=== PATIENT | female | born 1985 | race Caucasian/White ===

== ENCOUNTER → 2016-06-03 | Outpatient (CLI) | payer OTHER ==
[2016-06-03 09:57] LABS: CHCM 34.2; HCT 39.6 % (34.0-46.0); HDW 2.31; HGB 13.2 gm/dL (11.4-16.0); MCH 30.3 pg (25.0-35.0); MCHC 33.3 g/dL (31.0-37.0); Mean Platelet Volume 6.4; RBC 4.36 m/uL (3.80-5.40); RDW 12.9 % (11.5-15.5); WBC 8.3 k/uL (3.8-10.6)
[2016-06-03 11:09] LABS: Glucose 81 mg/dL (74-99); Non-African American GFR(MDRD) >60 (>60 ml/min/1.73 sqM)
== END | disposition home or self-care (01) ==
LOC: LABWHC1 09:04
PROVIDERS: ATTEND Obstetrics & Gynecology
DX: Z34.81 Encounter for supervision of other normal pregnancy, first trimester (principal); Z3A.00 Weeks of gestation of pregnancy not specified
CPT/HCPCS: 36415; 82565; 82947; 85027; 86762; 86780; 86850; 86900; 86901; 87340

== ENCOUNTER → 2016-09-27 | Outpatient (CLI) | payer OTHER ==
[2016-09-27 08:34] LABS: HCT 33.6 % (34.0-46.0); HDW 2.68; HGB 11.6 gm/dL (11.4-16.0); MCH 32.6 pg (25.0-35.0); MCHC 34.5 g/dL (31.0-37.0); MCV 94.6 fL (80.0-100.0); Mean Platelet Volume 7.4; RBC 3.55 m/uL (3.80-5.40); WBC 8.4 k/uL (3.8-10.6)
== END ==
LOC: LABWHC1 07:15
PROVIDERS: ATTEND Obstetrics & Gynecology
DX: Z34.92 Encounter for supervision of normal pregnancy, unspecified, second trimester (principal); Z3A.00 Weeks of gestation of pregnancy not specified
CPT/HCPCS: 36415; 82950; 85027

== ENCOUNTER → 2016-10-06 | Outpatient (CLI) | payer OTHER ==
[2016-10-06 11:38] LABS: Glucose 3 Hour, Gest 96 mg/dL
== END | disposition home or self-care (01) ==
LOC: LABWHC1 07:31
PROVIDERS: ATTEND Obstetrics & Gynecology
DX: O99.810 Abnormal glucose complicating pregnancy (principal); Z3A.00 Weeks of gestation of pregnancy not specified
CPT/HCPCS: 36415; 82951; 82952

== ENCOUNTER 2017-01-02 05:55 | Inpatient (IN) | payer OTHER ==
--- NOTE | 2017-01-02 06:04 | P.HPOB ---
History of Present Illness H&P Date: 01/02/17 Chief Complaint: patient is requesting induction of labor. This patient is a fuentes 31-year-old 2 para 1 female estimated date of confinement 01/05/2017 estimated gestational age 39-4/7 weeks who presents to labor and delivery for requested induction of labor. Patient's care has been uncomplicated. Review of Systems Constitutional: Denies chills, Denies fever Cardiovascular: Denies chest pain, Denies shortness of breath Respiratory: Denies cough Gastrointestinal: Reports heartburn Genitourinary: Reports Menstruation: Reports amenorrhea Past Medical History Past Medical History: No Reported History History of Any Multi-Drug Resistant Organisms: None Reported Past Surgical History: No Surgical Hx Reported Past Anesthesia/Blood Transfusion Reactions: No Reported Reaction Past Psychological History: No Psychological Hx Reported Smoking Status: Never smoker Past Alcohol Use History: None Reported Past Drug Use History: None Reported - Past Family History Father Family Medical History: Hypertension Medications and Allergies Home Medications Medication Instructions Recorded Confirmed Type Acetaminophen-Codeine 300-30mg 1 - 2 each PO Q4HR PRN #30 tab 11/18/14 Rx [Tylenol w/codeine #3] Ibuprofen [Motrin] 600 mg PO Q6HR PRN #40 tab 11/18/14 Rx Allergies Allergy/AdvReac Type Severity Reaction Status Date / Time No Known Allergies Allergy Verified 11/16/14 18:03 Exam - OBG Physical Exam Abdomen: bowel sounds normal, no diffuse tenderness, no bruit present, no guarding noted, no hepatomegaly, no splenomegaly, no mass Vulva: both: normal Cervix: no lesion (cervix in the office was 2 cm dilated -2 station vertex.), no discharge Uterus: enlarged (fundal height was 38 cm.) Results blood work shows she is O positive, rubella immune, RPR nonreactive, hepatitis B negative, Glucola was abnormal with a normal three-hour gtt. B strep was negative, ultrasounds have been normal. Assessment and Plan (1) Third trimester Narrative/Plan: This patient is a fuentes 31-year-old 2 para 1 female 39-4/7 weeks gestation who presents to labor and delivery for requested induction of labor. Plan is induction of labor and anticipate vaginal delivery. Current Visit: No Status: Acute Code(s): Z33.1 - STATE, INCIDENTAL SNOMED Code(s): 82313840 (2) Elective induction of labor planned Current Visit: Yes Status: Acute Code(s): TSY2596 - SNOMED Code(s): 842804080
[2017-01-02] MEDS ORDERED: CARBOPROST TROMETHAMINE 250 MCG/ML 1 ML AMP IM PRN (06:12)
[2017-01-02] MEDS ORDERED: OXYTOCIN 10 UNIT/ML 1 ML VIAL IM PRN (06:12)
[2017-01-02] MEDS ORDERED: OXYTOCIN 20 UNITS/1000 ML NS 1,000 ML IV SCH ×2 (06:12→16:07)
[2017-01-02] MEDS ORDERED: LIDOCAINE 1% (PF) 10 MG/ML (30 ML SDV) SQ PRN (06:12)
[2017-01-02] MEDS ORDERED: TERBUTALINE 1 MG/ML VIAL SQ PRN (06:12)
[2017-01-02] MEDS ORDERED: METHYLERGONOVINE 0.2 MG/ML 1 ML AMP IM PRN (06:12)
[2017-01-02] MEDS: LACTATED RINGERS 1,000 ML IV SCH ×2 (06:25→11:58)
[2017-01-02 06:32] LABS: Basophils % (A) 0 %; CH 31.3; CHCM 33.8; Eosinophils # (A) 0.1 k/uL (0-0.7); Eosinophils % (A) 1 %; HCT 38.6 % (34.0-46.0); HDW 2.48; HGB 12.8 gm/dL (11.4-16.0); Luc # (Auto) 0.16; Luc % (Auto) 2; Lymphocytes % (A) 25 %; MCHC 33.3 g/dL (31.0-37.0); Monocytes # (A) 0.4 k/uL (0-1.0); Monocytes % (A) 5 %; Neutrophils # (A) 5.3 k/uL (1.3-7.7); Neutrophils % (A) 66 %; RBC 4.14 m/uL (3.80-5.40); RDW 15.5 % (11.5-15.5); WBC (Perox) 8.31
[2017-01-02] MEDS ORDERED: SODIUM CHLORIDE 0.9% 100 ML BAG ONE (12:10)
[2017-01-02] MEDS ORDERED: fentaNYL (PF) 50 MCG/ML 5 ML AMP ONE (12:10)
[2017-01-02] MEDS ORDERED: BUPIVACAINE (PF) 0.25% 30 ML VIAL ONE (12:10)
[2017-01-02] MEDS ORDERED: BUPIVACAINE (PF) 0.25% 25 ML, fentaNYL (PF) 200 MCG in SODIUM CHLORIDE 0.9% 71 ML EPIDURAL ONE (13:03)
[2017-01-02] MEDS ORDERED: WITCH HAZEL 1 EACH MED..PAD TOPICAL PRN (16:07)
[2017-01-02] MEDS ORDERED: SIMETHICONE 80 MG CHEWABLE PO PRN (16:07)
[2017-01-02] MEDS ORDERED: BENZOCAINE/MENTHOL SPRAY 1 GM/SPRAY AEROSOL TOPICAL PRN (16:07)
[2017-01-02] MEDS ORDERED: BISACODYL 10 MG SUPP RECTAL PRN (16:07)
[2017-01-02] MEDS ORDERED: diphenhydrAMINE 25 MG CAP PO PRN (16:07)
[2017-01-02] MEDS ORDERED: HYDROCORTISONE 2.5% RECTAL CREAM 30 GM TUBE RECTAL PRN (16:07)
[2017-01-02] MEDS ORDERED: Acetaminophen-Codeine 300-30mg TAB PO PRN ×2 (16:07)
[2017-01-02] MEDS ORDERED: ZOLPIDEM 5 MG TAB PO PRN (16:07)
[2017-01-02] MEDS ORDERED: diphenhydrAMINE 50 MG/ML 1 ML VIAL IVP PRN (16:07)
[2017-01-02] MEDS ORDERED: ACETAMINOPHEN TAB 325 MG TAB PO PRN (16:07)
[2017-01-02] MEDS ORDERED: LANOLIN CREAM 5 GM TUBE TOPICAL PRN (16:07)
--- NOTE | 2017-01-02 17:53 | P.PROBDLV ---
Vaginal Delivery Note - . Vaginal Delivery Note: normal vaginal delivery viable male infant Apgars are 8 and 8 delivery time is 1556 hrs. Please see dictated H&P for intimate details of this patient's admission. In brief summary this is a pleasant 31-year-old 2 para 1 female 39-4/7 weeks gestation who is admitted to labor and delivery for elective induction of labor. Patient is admitted and is 2 cm dilated. She has artificial rupture membranes for clear fluid. Labor was induced with Pitocin per protocol. She does receive an epidural for pain control. Patient's labor progresses and she gets to complete. Patient pushes for approximately 45 minutes brings the head to the perineum. Posterior perineum was infiltrated with 1% lidocaine and a midline episiotomy is made. We then have controlled delivery of the infant's head over the perineum. Mouth and nares are bulb suctioned. There is a very tight nuchal cord which is doubly clamped cut and then reduced. We then have delivery of the anterior posterior shoulder and rest this 's body. This is a vigorous viable male Apgars are 8 and 8 delivery time is 1556 hrs. After delivery of the the placenta is spontaneously delivered intact with a three-vessel cord. Inspection of the perineum shows a second-degree midline laceration that is repaired with 3-0 Vicryl in the usual fashion. Excellent reapproximation is noted. All counts are correct 3. Estimated blood loss is 100 mL. There are no complications. and mother are stable in delivery room.
[2017-01-02] MEDS: IBUPROFEN 600 MG TAB PO PRN (22:13)
[2017-01-03] MEDS: SENNOSIDES-DOCUSATE SODIUM 1 EACH TAB PO SCH ×2 (01:54→08:06)
[2017-01-03] MEDS: IBUPROFEN 600 MG TAB PO PRN ×2 (04:36→11:18)
--- NOTE | 2017-01-03 07:35 | P.PNOBGVD ---
Subjective - Subjective Patient reports: Reports appetite normal, Reports voiding normally, Reports pain well controlled, Reports ambulating normally : doing well Objective - Latest Vital Signs Latest vital signs: Vital Signs Temp Pulse Resp BP 01/03/17 00:00 98.1 F 80 15 117/71 01/02/17 20:00 98 F 99 15 115/67 01/02/17 18:08 99.9 F H 104 H 14 125/68 01/02/17 17:38 97 16 138/63 01/02/17 17:08 97 16 133/72 01/02/17 16:53 97 16 129/62 01/02/17 16:38 110 H 16 144/72 01/02/17 16:23 113 H 16 143/77 01/02/17 16:08 100 16 137/69 Intake and Output 01/02/17 01/03/17 01/03/17 22:59 06:59 14:59 Output Total 200 Balance -200 Output: Estimated Blood Loss 200 Other: # Voids 1 1 - Exam Lungs: bilateral: normal Chest: Normal S1, Normal S2 Extremities: Present: normal Abdomen: Present: normal appearance, soft Uterus: Present: normal, firm Assessment and Plan Assessment: Post day #1. Patient is resting without complaints wishes to go home. Vital signs are stable and she is afebrile. Uterus is firm nontender she's having normal lochia. My impression this is a normal course. Plan is to continue routine care discharge home later today. (1) Third trimester Current Visit: No Status: Acute Code(s): Z33.1 - STATE, INCIDENTAL SNOMED Code(s): 09674770 (2) Elective induction of labor planned Current Visit: Yes Status: Acute Code(s): OXD1179 - SNOMED Code(s): 169578790
--- NOTE | 2017-01-03 07:41 | P.DS ---
Providers Date of admission: 01/02/17 05:55 Expected date of discharge: 01/03/17 Attending physician: Satinder Sam Primary care physician: Bakari Holman - Discharge Diagnosis(es) (1) Third trimester Current Visit: No Status: Acute (2) Elective induction of labor planned Current Visit: Yes Status: Acute Hospital Course: Please see dictated H&P for intimate details of this patient's admission. Brief summary this is a pleasant 31-year-old 2 para 1 female 39-1/2 weeks gestation admitted to labor and delivery for elective induction of labor. Patient is admitted has uncomplicated induction of labor goes on to have a vaginal delivery viable male . Please see dictated delivery note. day #1 patient is without complaints and wishes to go home. Patient' s felt be stable for discharge home follow up with me in 6 weeks. Procedures: Induction of labor and normal vaginal delivery. Patient Condition at Discharge: Good Plan - Discharge Summary New Discharge Prescriptions: New Acetaminophen-Codeine 300-30mg [Tylenol w/codeine #3] 1 - 2 each PO Q4HR PRN #30 tab PRN Reason: Mild Pain exceeding Tylenol Ibuprofen [Motrin] 600 mg PO Q6HR PRN #40 tab PRN Reason: Mild Pain Or Fever >= 100.5 No Action Pnv,Calcium 72/Iron/Folic Acid [ Plus Tablet] 1 tab PO DAILY Discharge Medication List Pnv,Calcium 72/Iron/Folic Acid [ Plus Tablet] 1 tab PO DAILY 01/02/17 [ History] Acetaminophen-Codeine 300-30mg [Tylenol w/codeine #3] 1 - 2 each PO Q4HR PRN # 30 tab 01/03/17 [Rx] Ibuprofen [Motrin] 600 mg PO Q6HR PRN #40 tab 01/03/17 [Rx] Follow up Appointment(s)/Referral(s): Satinder Sam MD [STAFF PHYSICIAN] - 02/24/17 9:15 am Patient Instructions/Handouts: Vaginal Delivery (DC) Activity/Diet/Wound Care/Special Instructions: No intercourse or anything per vagina for 6 weeks. Please call if any fever, chills, excessive vaginal bleeding, and/or abdominal pain. Discharge Disposition: HOME SELF-CARE
[2017-01-03 17:12] VITALS: BP 118/72; PULSE 78; RESP 18; TEMP 98.5
== END 2017-01-03 17:00 | disposition home or self-care (01) | DRG 775 ==
LOC: 4FBP 05:55
PROVIDERS: ADMIT Obstetrics & Gynecology; ATTEND Obstetrics & Gynecology
PROC: 3E033VJ Introduction of Other Hormone into Peripheral Vein, Percutaneous Approach (ICD-10-PCS; principal; 2017-01-02)
PROC: 00HU33Z Insertion of Infusion Device into Spinal Canal, Percutaneous Approach (ICD-10-PCS; principal; 2017-01-02)
PROC: 10907ZC Drainage of Amniotic Fluid, Therapeutic from Products of Conception, Via Natural or Artificial Opening (ICD-10-PCS; principal; 2017-01-02)
PROC: 10E0XZZ Delivery of Products of Conception, External Approach (ICD-10-PCS; principal; 2017-01-02)
PROC: 0W8NXZZ Division of Female Perineum, External Approach (ICD-10-PCS; principal; 2017-01-02)
PROC: 3E0R3BZ Introduction of Anesthetic Agent into Spinal Canal, Percutaneous Approach (ICD-10-PCS; principal; 2017-01-02)
PROC: 0KQM0ZZ Repair Perineum Muscle, Open Approach (ICD-10-PCS; principal; 2017-01-02)
DX: O69.1XX0 Labor and delivery complicated by cord around neck, with compression, not applicable or unspecified (principal); O70.1 Second degree perineal laceration during delivery; Z37.0 Single live birth; Z3A.39 39 weeks gestation of pregnancy
CPT/HCPCS: 85025; 88307

== ENCOUNTER 2021-01-10 03:15 | Inpatient (IN) | payer BC ==
[2021-01-10] MEDS ORDERED: OXYTOCIN 10 UNIT/ML 1 ML VIAL IM PRN (04:20)
[2021-01-10] MEDS ORDERED: METHYLERGONOVINE 0.2 MG/ML 1 ML AMP IM PRN (04:20)
[2021-01-10] MEDS ORDERED: TERBUTALINE 1 MG/ML VIAL SQ PRN (04:20)
[2021-01-10] MEDS ORDERED: LIDOCAINE 0.5% (PF) 5 MG/ML (50 ML SDV) SQ PRN (04:20)
[2021-01-10] MEDS ORDERED: CARBOPROST TROMETHAMINE 250 MCG/ML 1 ML AMP IM PRN (04:20)
[2021-01-10] MEDS: LACTATED RINGERS 1,000 ML IV SCH ×2 (04:30→06:23)
[2021-01-10] MEDS ORDERED: OXYTOCIN 30 UNITS/500 ML NS 30 UNIT in SALINE 1 500ML.BAG IV SCH ×2 (04:30→07:30)
--- NOTE | 2021-01-10 05:03 | P.HPOB ---
History of Present Illness H&P Date: 01/10/21 Chief Complaint: Leaking fluid This patient is a pleasant 35-year-old 3 para 2 female estimated date of confinement 01/14/2021 estimated gestational age 39-3/7 weeks who presents to labor and delivery with a gush of fluid at approximately 2:30 this morning. Patient's care has been complicated by advanced maternal age. Patient did decline any genetic testing but has been followed with growth ultrasounds and nonstress test. She was found to be marshall breech 35 weeks over this did convert spontaneously to vertex a few weeks ago. care is otherwise uncomplicated. Review of Systems Genitourinary: Reports Menstruation: Reports amenorrhea Past Medical History Past Medical History: No Reported History Additional Past Medical History / Comment(s): Patient's had 2 previous term vaginal deliveries History of Any Multi-Drug Resistant Organisms: None Reported Past Surgical History: No Surgical Hx Reported Additional Past Surgical History / Comment(s): Eye surgery Past Anesthesia/Blood Transfusion Reactions: No Reported Reaction Past Psychological History: No Psychological Hx Reported Smoking Status: Never smoker Past Alcohol Use History: None Reported Past Drug Use History: None Reported - Past Family History Mother Family Medical History: Cancer Additional Family Medical History / Comment(s): Mom from leukemia Father Family Medical History: Hypertension Medications and Allergies Home Medications Medication Instructions Recorded Confirmed Type Pnv,Calcium 72/Iron/Folic Acid 1 tab PO DAILY 01/02/17 01/10/21 History [ Plus Tablet] Allergies Allergy/AdvReac Type Severity Reaction Status Date / Time No Known Allergies Allergy Verified 01/10/21 03:38 Exam Vital Signs Temp Pulse Resp BP Pulse Ox 01/10/21 04:20 99.2 F 117 H 16 116/71 97 Intake and Output 01/09/21 01/09/21 01/10/21 14:59 22:59 06:59 Other: Weight 72.575 kg - OBG Physical Exam Abdomen: bowel sounds normal, no diffuse tenderness, no bruit present, no guarding noted, no hepatomegaly, no splenomegaly, no mass Vulva: both: normal Vagina: Gross rupture membranes with thin meconium-stained fluid Vagina: no discharge Cervix: Cervix is 4 cm dilated and thick -2 station Uterus: enlarged Results labs show she is O positive, rubella immune, RPR nonreactive, hepatitis B is negative, HIV is negative, group B strep was negative, Glucola was 86, ultrasounds show normal growth. Assessment and Plan Assessment: This is a pleasant 35-year-old 3 para 2 female 39-3/7 weeks gestation with spontaneous rupture membranes, thin meconium-stained fluid, and early labor. Plan is augmentation of labor and anticipate vaginal delivery. (1) 39 weeks gestation of Current Visit: Yes Status: Acute Code(s): Z3A.39 - 39 WEEKS GESTATION OF SNOMED Code(s): 25662756 (2) Spontaneous rupture of amniotic membranes Current Visit: Yes Status: Acute Code(s): LIZ8834 - SNOMED Code(s): 644106535 (3) Meconium in amniotic fluid Current Visit: Yes Status: Acute Code(s): P96.83 - MECONIUM STAINING SNOM ED Code(s): 884609254
[2021-01-10 05:34] LABS: Basophils % (A) 0 %; Eosinophils % (A) 0 %; HCT 34.3 % (34.0-46.0); HGB 12.2 gm/dL (11.4-16.0); Lymphocytes # (A) 0.5 k/uL (1.0-4.8); Lymphocytes % (A) 9 %; MCHC 35.6 g/dL (31.0-37.0); MCV 90.1 fL (80.0-100.0); Mean Platelet Volume 7.4; Monocytes # (A) 0.1 k/uL (0-1.0); Monocytes % (A) 3 %; Neutrophils # (A) 4.2 k/uL (1.3-7.7); Neutrophils % (A) 86 %; Platelet Count 157 k/uL (150-450); RDW 13.7 % (11.5-15.5); WBC 4.9 k/uL (3.8-10.6)
[2021-01-10] MEDS ORDERED: SODIUM CHLORIDE 0.9% 100 ML BAG ONE (05:58)
[2021-01-10] MEDS ORDERED: fentaNYL (PF) 50 MCG/ML 5 ML AMP ONE (05:58)
[2021-01-10] MEDS ORDERED: ROPIVACAINE 5MG/ML 20ML VIAL ONE (05:58)
[2021-01-10] MEDS ORDERED: diphenhydrAMINE 50 MG/ML 1 ML VIAL IVP PRN (07:27)
[2021-01-10] MEDS ORDERED: diphenhydrAMINE 25 MG CAP PO PRN (07:27)
[2021-01-10] MEDS ORDERED: BENZOCAINE/MENTHOL SPRAY 1 GM/SPRAY AEROSOL TOPICAL PRN (07:27)
[2021-01-10] MEDS ORDERED: ZOLPIDEM 5 MG TAB PO PRN (07:27)
[2021-01-10] MEDS ORDERED: SIMETHICONE 80 MG CHEWABLE PO PRN (07:27)
[2021-01-10] MEDS ORDERED: HYDROCORTISONE 2.5% RECTAL CREAM 30 GM TUBE RECTAL PRN (07:27)
[2021-01-10] MEDS ORDERED: LANOLIN CREAM 5 GM TUBE TOPICAL PRN (07:27)
[2021-01-10] MEDS ORDERED: ACETAMINOPHEN TAB 325 MG TAB PO PRN (07:27)
[2021-01-10] MEDS ORDERED: bisacodyL 10 MG SUPP RECTAL PRN (07:27)
--- NOTE | 2021-01-10 07:33 | P.PROBDLV ---
Vaginal Delivery Note - . Vaginal Delivery Note: Normal vaginal delivery viable male infant Apgars 9 and 9 delivery time was 0709 hrs. Please see dictated H&P for intimate details of this patient's admission. Brief summary is a pleasant 35-year-old 3 para 2 female 39-4/7 weeks gestation admitted in spontaneous rupture membranes for light meconium-stained fluid. Patient's 4 cm dilated and irregular contractions therefore does have Pitocin augmentation of labor. Patient gets an epidural for pain control and then quickly gets to complete. Patient pushes approximately 2 times pushes the head to the perineum. Perineum is supported we have controlled delivery of 's head over the intact perineum. head is straight occiput anterior presentation. Mouth and nares are bulb suctioned. Nuchal cord is removed loose and reduced. With gentle downward traction we then have deliver the anterior and posterior shoulder and rest this infant's body. This is a vigorous viable male infant Apgars are 9 and 9 delivery time was 0709 hrs. has spontaneous respirations and cry and grossly appears normal. Infant is meconium-stained. After delivery of the the infant is late on the mother's abdomen and after the cord is then pulsating is doubly clamped and cut. It appears to be trivascular. The placenta is then spontaneously delivered intact. It does appear meconium-stained as well. Inspection of perineum shows a first-degree laceration over in the right posterior vagina and this is reapproximated with a 3-0 Vicryl. She also a right periurethral which is superficial does not require stitches. Estimated blood loss 1 50 mL. All counts correct 3. No complications.
--- NOTE | 2021-01-10 11:27 | P.MSEPDOC ---
Presenting Problems - Arrival Data Date of Arrival on Unit: 01/10/21 Time of Arrival on Unit: 03:15 Mode of Transport: Ambulatory - Complaint OB-Reason for Admission/Chief Complaint: Rule Out SROM Comment: Patient believes her water broke at 01:30. She describes the color as yellow/green. Medical History - Information : 3 Para: 2 Term: 2 : 0 Abortions: Spontaneous or Elective: 0 Number of Living Children: 2 - Gestational Age Gestational Age by DARBY (wks/days): 39 Weeks and 3 Days Review of Systems - Review of Systems Constitutional: No problems Breast: No problems ENT: No problems Cardiovascular: No problems Respiratory: No problems Gastrointestinal: No problems Genitourinary: No problems Musculoskeletal: No problems Neurological: No problems Skin: No problems Vital Signs - Temperature Temperature: 97 F Temperature Source: Temporal Artery Scan - Pulse Pulse Oximetery Pulse Rate: 68 Pulse Assessment Method: Automatic Cuff - Respirations Respiratory Rate: 16 Oxygen Delivery Method: Room Air - Blood Pressure Right Arm Blood Pressure: 102/70 Blood Pressure Mean: 80 Blood Pressure Source: Automatic Cuff Medical Screen Scoring - Cervical Exam Dilation (cm): 4 Effacement (%): 50 Station: -2 Membranes: Ruptured - Uterine Contractions Intensity: Mild Resting: Soft to palpation - Assessment - Baby A Baseline FHR: 140 Heart Rate - NICHD Category: Category I (Normal) NST: Reactive Maternal Triage Index - Non-Urgent/Priority 4 Non-Urgent Priority 4: Yes Criteria Met for Priority 4: Early labor signs, SROM Disposition - Disposition OB Disposition: Admit, LDRP Suite I agree with the RN Medical Screening Exam: Yes Case reviewed; plan agreed upon as documented in EMR&OBIX.: Yes Diagnosis: ENCOUNTER FOR FULL-TERM UNCOMPLICATED DELIVERY
[2021-01-10] MEDS: IBUPROFEN 600 MG TAB PO PRN (19:27)
[2021-01-10] MEDS: SENNOSIDES-DOCUSATE SODIUM 1 EACH TAB PO PRN (19:27)
[2021-01-11] MEDS: IBUPROFEN 600 MG TAB PO PRN ×3 (02:57→19:53)
--- NOTE | 2021-01-11 05:47 | P.PNOBGVD ---
Subjective - Subjective Patient reports: Reports appetite normal, Reports voiding normally, Reports pain well controlled, Reports ambulating normally : doing well Objective - Latest Vital Signs Latest vital signs: Vital Signs Temp Pulse Resp BP Pulse Ox 01/10/21 22:18 97.6 F 76 18 99/67 97 01/10/21 16:00 97.9 F 81 16 101/68 01/10/21 12:00 97.6 F 78 14 106/70 95 01/10/21 11:27 97 F L 68 16 102/70 01/10/21 09:25 97 F L 68 16 102/70 01/10/21 08:55 76 16 98/69 01/10/21 08:25 75 16 99/66 01/10/21 08:10 79 16 98/70 01/10/21 07:55 73 16 100/69 01/10/21 07:40 74 16 104/68 01/10/21 07:25 82 16 110/63 Intake and Output 01/10/21 01/10/21 01/11/21 14:59 22:59 06:59 Other: # Voids 2 2 - Exam Lungs: bilateral: normal Chest: Normal S1, Normal S2 Extremities: Present: normal Abdomen: Present: normal appearance, soft Uterus: Present: normal, firm Assessment and Plan Assessment: day #1. Patient is resting without complaints wishes to go home. Vital signs are stable and she is afebrile. Uterus is firm nontender and she is having normal lochia. My impression this is a normal course. Plan is to continue routine care and discharge home later today is lysed her baby is able to be discharged. (1) 39 weeks gestation of Current Visit: Yes Status: Acute Code(s): Z3A.39 - 39 WEEKS GESTATION OF SNOMED Code(s): 69564410 (2) Spontaneous rupture of amniotic membranes Current Visit: Yes Status: Acute Code(s): FDZ1417 - SNOMED Code(s): 818489530 (3) Meconium in amniotic fluid Current Visit: Yes Status: Acute Code(s): P96.83 - MECONIUM STAINING SNOMED Code(s): 852132991
--- NOTE | 2021-01-11 05:50 | P.DS ---
Providers Date of admission: 01/10/21 03:57 Expected date of discharge: 01/11/21 Attending physician: Satinder Sam Primary care physician: Stated None - Discharge Diagnosis(es) (1) 39 weeks gestation of Current Visit: Yes Status: Acute (2) Spontaneous rupture of amniotic membranes Current Visit: Yes Status: Acute (3) Meconium in amniotic fluid Current Visit: Yes Status: Acute Hospital Course: Please see dictated H&P for intimate details of this patient's admission. In brief summary this is a pleasant 35-year-old 3 para 2 female 39-4/7 weeks gestation admitted to labor and delivery in active labor. Patient quickly goes on to have a vaginal delivery viable male . Please see dictated delivery note. day 1 patient without complaints she did wish to go home. Patient's felt be stable for discharge home follow up with me in 6 weeks. Procedures: Normal vaginal delivery Patient Condition at Discharge: Good Plan - Discharge Summary New Discharge Prescriptions: New Ibuprofen [Motrin] 600 mg PO Q6HR PRN #30 tab PRN Reason: Pain No Action Pnv,Calcium 72/Iron/Folic Acid [ Plus Tablet] 1 tab PO DAILY Discharge Medication List Pnv,Calcium 72/Iron/Folic Acid [ Plus Tablet] 1 tab PO DAILY 01/02/17 [History] Ibuprofen [Motrin] 600 mg PO Q6HR PRN #30 tab 01/11/21 [Rx] Follow up Appointment(s)/Referral(s): Satinder Sam MD [STAFF PHYSICIAN] - 02/26/21 10:15 am Patient Instructions/Handouts: Vaginal Delivery (DC) Activity/Diet/Wound Care/Special Instructions: No intercourse or anything per vagina for 6 weeks. Please call if any fever, chills, excessive vaginal bleeding, and/or abdominal pain. Discharge Disposition: HOME SELF-CARE
[2021-01-11 08:41] VITALS: RESP 16
[2021-01-11] MEDS: SENNOSIDES-DOCUSATE SODIUM 1 EACH TAB PO PRN ×2 (09:03→19:54)
[2021-01-11 20:14] VITALS: TEMP 98.4
[2021-01-12 04:20] VITALS: BP 97/68; PULSE 65
[2021-01-12] MEDS: SENNOSIDES-DOCUSATE SODIUM 1 EACH TAB PO PRN (09:24)
== END 2021-01-12 10:05 | disposition home or self-care (01) | DRG 807 ==
LOC: FBPOP 03:15 → 4FBP 03:57
PROVIDERS: ADMIT Obstetrics & Gynecology; ATTEND Obstetrics & Gynecology
PROC: 0HQ9XZZ Repair Perineum Skin, External Approach (ICD-10-PCS; principal; 2021-01-10)
PROC: 10E0XZZ Delivery of Products of Conception, External Approach (ICD-10-PCS; 2021-01-10)
DX: O32.1XX0 Maternal care for breech presentation, not applicable or unspecified (principal); Z37.0 Single live birth; O69.81X0 Labor and delivery complicated by cord around neck, without compression, not applicable or unspecified; O70.0 First degree perineal laceration during delivery; Z3A.39 39 weeks gestation of pregnancy; Z80.6 Family history of leukemia; Z82.49 Family history of ischemic heart disease and other diseases of the circulatory system
CPT/HCPCS: 59025; 84112; 85025; 86850; 86900; 86901; 88307; 99213